=== PATIENT | male | born 1945 | race Caucasian/White ===

== ENCOUNTER 2016-12-21 08:58 | Outpatient (CLI) | payer MEDICARE, OTHER | END 2016-12-21 08:59 | LOC: NAVSJIPCSP 08:58 | PROVIDERS: ATTEND Internal Medicine | DX: Z11.59 Encounter for screening for other viral diseases (principal); E78.2 Mixed hyperlipidemia | CPT/HCPCS: 36415; 80061; 86803 ==

== ENCOUNTER 2017-07-11 09:20 | Outpatient (CLI) | payer MEDICARE, OTHER ==
[2017-07-11 12:39] LABS: Cardiac Risk 5.9 (Less than 4.5)
== END 2017-07-11 09:21 | disposition home or self-care (01) ==
LOC: NAVSJIPCSP 09:20
PROVIDERS: ATTEND Internal Medicine
DX: E78.2 Mixed hyperlipidemia (principal)
CPT/HCPCS: 36415; 80061

== ENCOUNTER 2018-11-05 08:01 | Emergency (ER) | payer MEDICARE, OTHER ==
[2018-11-05 09:22] LABS: #Basophils 0.1 thou/uL (0.0-0.2); #Lymphocytes 1.3 thou/uL (1.20-3.40); #Monocytes 0.6 thou/uL (0.11-0.59); #Neutrophils 8.8 thou/uL (1.40-6.50); %Basophils 0.8 % (0.0-1.0); %Eosinophils 0.1 % (0.0-10.0); %Lymphocytes 11.7 % (21.0-51.0); %Monocytes 5.7 % (0.0-10.0); %Neutrophils 81.7 % (42.0-75.0); Hemoglobin 16.9 g/dL (14.0-18.0); Mean Corpuscular HGB CONC 33.1 g/dL (32.0-36.0); Mean Corpuscular Hemoglobin 29.8 pg (27.0-31.0); Mean Corpuscular Volume 89.9 fL (78.0-98.0); Mean Platelet Volume 9.1 fL (7.4-10.4); Platelet Count 235 thou/uL (130-400); RBC Distribution Width 11.5 % (11.5-14.5); Red Blood Cell (RBC) Count 5.69 mill/uL (4.70-6.10); White Blood Cell (WBC) Count 10.8 thou/uL (4.8-10.8)
[2018-11-05 09:34] LABS: Bilirubin Negative (Negative); Blood, Urine Negative (Negative); Clarity Clear (Clear); Glucose, Urine (Dipstick) Negative (Negative); Leukocyte Negative (Negative); Nitrite Negative (Negative); Protein, Urine (Dipstick) Trace mg/dL (Neg-Trace); Urobilinogen 0.2 mg/dL (0.2-1.0); pH, Urine 5.5 (5.0-9.0)
[2018-11-05 09:38] LABS: ALT (SGPT) 23 U/L (8-55); AST (SGOT) 18 U/L (5-34); Albumin 4.9 g/dL (3.4-4.8); Alkaline Phosphatase 75 U/L (40-150); Anion Gap 16 mmol/L (10-20); BUN (Urea Nitrogen) 21 mg/dL (8.4-25.7); Bilirubin, Total 1.2 mg/dL (0.2-1.2); CK (CPK) 142 U/L (30-200); Calc. Creatinine Clearance 0 mL/min (70-130); Calcium 10.3 mg/dL (7.8-10.44); Carbon Dioxide 22 mmol/L (23-31); Chloride 106 mmol/L (98-107); Estimated GFR-MDRD 50; Globulin 2.9 g/dL (2.4-3.5); Glucose 136 mg/dL (83-110); Lipase 40 U/L (8-78); Potassium 4.6 mmol/L (3.5-5.1); Protein, Total 7.8 g/dL (5.8-8.1); Sodium 139 mmol/L (136-145)
[2018-11-05] MEDS ORDERED: Sodium Chloride 0.9% 1,000 ML ONE (09:46)
[2018-11-05] MEDS ORDERED: Ondansetron PF 4 MG/2 ML Vial ONE (10:41)
[2018-11-05] MEDS ORDERED: Pantoprazole 40 MG VIAL ONE (10:43)
--- NOTE | 2018-11-05 10:46 | RAD ---
KUB AND UPRIGHT AND PA CHEST: Date: 11/05/18 HISTORY: Abdominal pain and vomiting. FINDINGS: Bowel gas pattern is nonobstructive. No free air demonstrated. No radiopaque calculi are seen. There are arthritic changes of the spine. Heart size within normal limits. There are atherosclerotic changes of the aorta. Lungs are clear of i nfiltrates. IMPRESSION: No acute findings. POS: [facility]
[2018-11-05] MEDS ORDERED: Fentanyl 100 MCG/2 ML VIAL ONE (11:00)
== END 2018-11-05 11:45 | disposition short-term general hospital (02) ==
LOC: NAV ERS 08:01
DX: E86.9 Volume depletion, unspecified (principal); R10.13 Epigastric pain; E78.5 Hyperlipidemia, unspecified; I10 Essential (primary) hypertension; F17.210 Nicotine dependence, cigarettes, uncomplicated; Z79.899 Other long term (current) drug therapy
CPT/HCPCS: 74022; 80053; 81003; 82550; 83690; 84484; 85025; 93005; 96361; 96374; 96375; C9113; J2405; J3010; J7050